=== PATIENT | female | born 1985 ===

== ENCOUNTER 2017-08-13 08:55 | Emergency (ER) | payer MEDICAID ==
[2017-08-13 09:20] VITALS: BMI 22.1
[2017-08-13 09:27] VITALS: RESP 18; TEMP 98
--- NOTE | 2017-08-13 09:39 | ED PDOC ---
Arrival/HPI - General Chief Complaint: Lower Extremity Problem/Injury Time Seen by Provider: 08/13/17 09:22 Historian: Patient - History of Present Illness Narrative History of Present Illness (Text): 08/13/17 09:22 31 y/o female, no significant pmh, nkda, c/o rt. ankle pain s/p inversion injury while walking down the stair this morning. Aching pain, associated with mild swelling, no calf pain, no foot pain, no numbness or tingling, no rash, no other medical or psychological complaints. Past Medical History - Provider Review Nursing Documentation Reviewed: Yes - Infectious Disease Hx of Infectious Diseases: None - Psychiatric Hx Substance Use: No - Surgical History Hx Section: Yes - Anesthesia Hx Anesthesia: Yes Hx Anesthesia Reactions: No Hx Malignant Hyperthermia: No Family/Social History - Physician Review Nursing Documentation Reviewed: Yes Family/Social History: Unknown Family HX Smoking Status: Never Smoked Hx Alcohol Use: No Hx Substance Use: No Allergies/Home Meds Allergies/Adverse Reactions: Allergies kiwi Allergy (Verified 08/13/17 09:36) ITCHING Review of Systems - Review of Systems Constitutional: absent: Fatigue, Fevers Eyes: absent: Vision Changes ENT: absent: Hearing Changes Respiratory: absent: SOB, Cough Cardiovascular: absent: Chest Pain Gastrointestinal: absent: Abdominal Pain, Nausea, Vomiting Musculoskeletal: Arthralgias, Joint Swelling. absent: Back Pain, Neck Pain, Myalgias Skin: absent: Rash, Pruritis Psychiatric: absent: Anxiety, Depression, Suicidal Ideation Physical Exam Vital Signs Reviewed: Yes Vital Signs Temp Pulse Resp BP Pulse Ox 08/13/17 10:56 68 18 08/13/17 10:50 68 18 110/70 99 08/13/17 08:56 98.0 F 73 18 106/78 100 Temperature: Afebrile Blood Pressure: Normal Pulse: Regular Respiratory Rate: Normal Appearance: Positive for: Well-Appearing, Non-Toxic, Comfortable Pain Distress: Mild Mental Status: Positive for: Alert and Oriented X 3 - Systems Exam Head: Present: Atraumatic, Normocephalic Pupils: Present: PERRL Extroacular Muscles: Present: EOMI Conjunctiva: Present: Normal Mouth: Present: Moist Mucous Membranes Neck: Present: Normal Range of Motion Respiratory/Chest: Present: Clear to Auscultation, Good Air Exchange. No: Respiratory Distress, Accessory Muscle Use Cardiovascular: Present: Regular Rate and Rhythm, Normal S1, S2. No: Murmurs Abdomen: No: Tenderness, Distention, Peritoneal Signs Back: Present: Normal Inspection Upper Extremity: Present: Normal Inspection. No: Cyanosis, Edema Lower Extremity: Present: Normal Inspection, Other (Rt. ankle/foot: +ttp on the rt. lateral ankle with mild swelling, negative kt and chatman signs, skin intact, no laceration or abrasion, FROM without limitation, sensation intact, motor 5/5, +DPPT Pulses, capillary refill< 2 seconds, neurovascular intact. ). No: Edema Neurological: Present: GCS=15, CN II-XII Intact, Speech Normal Skin: Present: Warm, Dry, Normal Color. No: Rashes Psychiatric: Present: Alert, Oriented x 3, Normal Insight, Normal Concentration Medical Decision Making ED Course and Treatment: 08/13/17 09:42 -Rt. ankle xray -Motrin -Observe and reassess 08/13/17 10:37 -Urine hcg is negative -Rt. ankle pain resolved, feeling much better -Xray show no fracture or dislocation -Discharge home with motrin, ximena wrap, crutches, ice compression, follow up with your own pmd and orthopedic within 2 days, return to the ER for any new or worsening signs or symptoms. - RAD Interpretation Radiology Orders: 08/13/17 09:39 ANKLE RIGHT 3 VIEWS ROUTINE [RAD] Stat HISTORY: rt. ankle injury and pain laterally COMPARISON: None FINDINGS: BONES: Normal. No fracture. JOINTS: Normal. No osteoarthritis. Ankle mortise maintained. Talar dome intact SOFT TISSUES: Normal. OTHER FINDINGS: None. IMPRESSION: Normal right ankle radiographs. 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 Disposition/Present on Arrival - Present on Arrival Any Indicators Present on Arrival: No History of DVT/PE: No History of Uncontrolled Diabetes: No Urinary Catheter: No History of Decub. Ulcer: No History Surgical Site Infection Following: None - Disposition Have Diagnosis and Disposition been Completed?: Yes Diagnosis: Ankle injury, Ankle pain Disposition: HOME/ ROUTINE Disposition Time: 09:43 Patient Plan: Discharge Condition: GOOD Additional Instructions: -Discharge home with motrin, ximena wrap, crutches, ice compression, follow up with your own pmd and orthopedic within 2 days, return to the ER for any new or worsening signs or symptoms. Prescriptions: Ibuprofen [Motrin] 600 mg PO TID PRN #[id number] tab PRN Reason: Other Referrals: Israel Escobar MD [Primary Care Provider] - Follow up with primary Uriah Elena III, MD [Medical Doctor] - Follow up with primary Forms: WORK NOTE
[2017-08-13 10:50] VITALS: BP 110/70; PULSE 68; O2SAT 99
--- NOTE | 2017-08-13 11:00 | RAD ---
PROCEDURE: Right Ankle Radiographs. HISTORY: rt. ankle injury and pain laterally COMPARISON: None FINDINGS: BONES: Normal. No fracture. JOINTS: Normal. No osteoarthritis. Ankle mortise maintained. Talar dome intact SOFT TISSUES: Normal. OTHER FINDINGS: None. IMPRESSION: Normal right ankle radiographs.
== END 2017-08-13 10:55 | disposition home or self-care (01) ==
LOC: ED 08:55
DX: S99.911A Unspecified injury of right ankle, initial encounter (principal); X58.XXXA Exposure to other specified factors, initial encounter; M25.571 Pain in right ankle and joints of right foot

== ENCOUNTER 2018-03-09 21:42 | Emergency (ER) | payer MEDICAID ==
[2018-03-09 22:26] VITALS: RESP 18; TEMP 98; O2SAT 100; BMI 23.0
[2018-03-09] MEDS ORDERED: Sodium Chloride 0.9% 1,000 ML IV STA (22:48)
[2018-03-09 23:13] LABS: BASO # 0.01 K/mm3 (0.0-2.0); BASO % 0.1 % (0.0-3.0); EOS # 0.3 (0.0-0.7); EOS % 3.8 % (1.5-5.0); GRAN # 4.5 (1.4-6.5); GRAN % 60.8 % (50.0-68.0); HEMOGLOBIN 12.9 g/dL (12.0-16.0); LYMPH # 2.3 (1.2-3.4); LYMPH % 31.4 % (22.0-35.0); MEAN CELL VOLUME 86.9 fl (80.0-105.0); MEAN CORPUSCULAR HEMOGLOBIN 29.1 pg (25.0-35.0); MEAN CORPUSCULAR HGB CONC 33.5 g/dl (31.0-37.0); MEAN PLATELET VOLUME 10.7 fl (7.0-11.0); MONO # 0.3 (0.1-0.6); MONO % 3.9 % (1.0-6.0); RBC 4.43 10^6/uL (3.5-6.1); RED CELL DISTRIBUTION WIDTH 13.3 % (11.5-14.5); WHITE BLOOD COUNT 7.4 10^3/uL (4.5-11.0)
[2018-03-09 23:19] LABS: INR 1.13; PROTHROMBIN TIME 12.9 SECONDS (9.4-12.5)
[2018-03-09 23:20] LABS: ALB/GLOB RATIO 1.3 (1.1-1.8); ALBUMIN 4.2 g/dL (3.0-4.8); ALT/SGPT 24 U/L (7-56); AST/SGOT 20 U/L (14-36); BLOOD UREA NITROGEN 10 mg/dL (7-21); CALCIUM 9.3 mg/dL (8.4-10.5); GFR NON-AFRICAN AMERICAN > 60; LIPASE 250 U/L (23-300)
[2018-03-10 00:07] LABS: PH,URINE 6.5 (4.7-8.0); URINE BILIRUBIN NEGATIVE (NEGATIVE); URINE BLOOD NEGATIVE (NEGATIVE); URINE GLUCOSE (UA) NEGATIVE (NEGATIVE); URINE LEUKOCYTE ESTERASE NEGATIVE Leu/uL (NEGATIVE); URINE PROTEIN NEGATIVE mg/dL (<30 mg/dL); URINE UROBILINOGEN 0.2 E.U./dL (<1 E.U./dL)
[2018-03-10 00:15] LABS: URINE APPEARANCE CLEAR (CLEAR); URINE COLOR YELLOW (YELLOW)
--- NOTE | 2018-03-10 01:34 | ED PDOC ---
Arrival/HPI - General Chief Complaint: GI Problem Time Seen by Provider: 03/09/18 22:25 Historian: Patient - History of Present Illness Narrative History of Present Illness (Text): 32 y/o female with PMH of tubal ligation presents to the ED c/o vomiting x 1 day. Pt awoke feeling nauseous at 3am this morning, and admits to 4-5 episodes of non-bloody emesis since then. Associated epigastric abdominal pain and right sided flank pain. Pain is sharp and worse with vomiting. Unable to tolerate PO today, BM per baseline. Denies sick contacts, changes in diet, or recent travel. Denies fever, chills, diarrhea, chest pain, SOB, urinary symptoms, neck pain, headache, dizziness, vision changes, pelvic pain, vaginal discharge, vaginal bleeding, or any other associated symptoms. Past Medical History - Provider Review Nursing Documentation Reviewed: Yes - Infectious Disease Hx of Infectious Diseases: None - Psychiatric Hx Substance Use: No - Surgical History Hx Section: Yes Hx Tubal Ligation: Yes - Anesthesia Hx Anesthesia: Yes Hx Anesthesia Reactions: No Hx Malignant Hyperthermia: No Family/Social History - Physician Review Nursing Documentation Reviewed: Yes Family/Social History: No Known Family HX Smoking Status: Never Smoked Hx Alcohol Use: No Hx Substance Use: No Allergies/Home Meds Allergies/Adverse Reactions: Allergies kiwi Allergy (Verified 08/13/17 09:36) ITCHING Review of Systems - Physician Review All systems were reviewed & negative as marked: Yes - Review of Systems Constitutional: Normal Eyes: Normal ENT: Normal Respiratory: Normal. absent: SOB, Cough Cardiovascular: Normal. absent: Chest Pain, Palpitations, Syncope Gastrointestinal: Abdominal Pain, Nausea, Vomiting, Anorexia Genitourinary Female: Normal. absent: Dysuria, Frequency, Hematuria, Urine Output Changes, Vaginal Bleeding, Vaginal Discharge Musculoskeletal: Back Pain. absent: Neck Pain Skin: Normal. absent: Rash Neurological: Normal. absent: Headache, Dizziness, Gait Changes Endocrine: Normal Hemo/Lymphatic: Normal Psychiatric: Normal Physical Exam Vital Signs Reviewed: Yes Vital Signs Temp Pulse Resp BP Pulse Ox 03/09/18 22:24 98.0 F 61 18 113/79 100 Temperature: Afebrile Blood Pressure: Normal Pulse: Regular Respiratory Rate: Normal Appearance: Positive for: Well-Appearing, Non-Toxic, Comfortable Pain Distress: None Mental Status: Positive for: Alert and Oriented X 3 - Systems Exam Head: Present: Atraumatic, Normocephalic Pupils: Present: PERRL Extroacular Muscles: Present: EOMI Conjunctiva: Present: Normal Mouth: Present: Moist Mucous Membranes Neck: Present: Normal Range of Motion Respiratory/Chest: Present: Clear to Auscultation, Good Air Exchange. No: Respiratory Distress, Accessory Muscle Use Cardiovascular: Present: Regular Rate and Rhythm, Normal S1, S2. No: Murmurs Abdomen: Present: Tenderness (epigastric), Normal Bowel Sounds. No: Distention, Peritoneal Signs, Rebound, Guarding Back: Present: Normal Inspection, CVA Tenderness (right). No: Midline Tend erness, Paraspinal Tenderness Upper Extremity: Present: Normal Inspection, Normal ROM, NORMAL PULSES, Neurovascularly Intact, Capillary Refill < 2s. No: Cyanosis, Edema Lower Extremity: Present: Normal Inspection, NORMAL PULSES, Normal ROM, Neurovas cularly Intact, Capillary Refill < 2 s. No: Edema, Tenderness, Swelling Neurological: Present: GCS=15, CN II-XII Intact, Speech Normal, Motor Func Grossly Intact, Normal Sensory Function, Normal Cerebellar Funct, Gait Normal Skin: Present: Warm, Dry, Normal Color. No: Rashes Psychiatric: Present: Alert, Oriented x 3, Normal Insight, Normal Concentration, Normal Affect, Normal Mood Medical Decision Making ED Course and Treatment: Initial Plan: * CBC, CMP * Lipase * UA, culture * IVF * Zofran * Pepcid * CT Abd/Pelvis without IV contrast 23:30 Labwork un[address]. Pending CT. 00:30 Patient reports resolution of abdominal pain. Patient tolerated PO without difficulty. Ate two packs of raghavendra crackers and a cup of water. No vomiting. 01:[address] 02:00 Dr. Kendrick will take over patient care and disposition. Pending CT results. Patient with stable vital signs at this time. - Lab Interpretations Lab Results: 03/09/18 23:05 03/09/18 23:05 Lab Results 03/09/18 23:37: Urine Color Yellow, Urine Appearance Clear, Urine pH 6.5, Ur Specific [place] 1.025, Urine Protein Negative, Urine Glucose (UA) Negative, Urine Ketones Negative, Urine Blood Negative, Urine Nitrate Negative, Urine Bilirubin Negative, Urine Urobilinogen 0.2, Ur Leukocyte Esterase Negative 03/09/18 23:05: Sodium 141, Potassium 3.6, Chloride 107, Carbon Dioxide 27, Anion Gap 10, BUN 10, Creatinine 0.6 L, Est GFR ( Amer) > 60, Est GFR (Non-Af Amer) > 60, Random Glucose 95, Calcium 9.3, Magnesium 2.2, Total Bilirubin 0.4, AST 20, ALT 24, Alkaline Phosphatase 56, Total Protein 7.5, Albumin 4.2, Globulin 3.3, Albumin/Globulin Ratio 1.3, Lipase 250 03/09/18 23:05: PT 12.9 H, INR 1.13, APTT 27.0 03/09/18 23:05: WBC 7.4, RBC 4.43, Hgb 12.9, Hct 38.5, MCV 86.9, MCH 29.1, MCHC 33.5, RDW 13.3, Plt Count 232, MPV 10.7, Gran % 60.8, Lymph % (Auto) 31.4, [place] % (Auto) 3.9, Eos % (Auto) 3.8, Baso % (Auto) 0.1, Gran # 4.50, Lymph # (Auto) 2.3, [place] # (Auto) 0.3, Eos # (Auto) 0.3, Baso # (Auto) 0.01 I have reviewed the lab results: Yes - RAD Interpretation Radiology Orders: 03/09/18 22:53 ABD & PELVIS W/O PO OR IV CONT [CT] Stat - Medication Orders Current Medication Orders: Discontinued Medications Famotidine (Pepcid) 20 mg IVP STAT STA Stop: 03/09/18 22:49 Sodium Chloride (Sodium Chloride 0.9%) 1,000 mls @ 1,000 mls/hr IV .Q1H STA Stop: 03/09/18 23:47 Ketorolac Tromethamine (Toradol) 30 mg IVP STAT STA Stop: 03/09/18 22:49 Ondansetron HCl (Zofran Inj) 4 mg IVP STAT STA Stop: 03/09/18 22:49 Disposition/Present on Arrival - Present on Arrival Any Indicators Present on Arrival: No History of DVT/PE: No History of Uncontrolled Diabetes: No Urinary Catheter: No History of Decub. Ulcer: No History Surgical Site Infection Following: None - Disposition Have Diagnosis and Disposition been Completed?: Yes Diagnosis: Flank pain Disposition: HOME/ ROUTINE Disposition Time: 03:45 Patient Plan: Discharge Condition: IMPROVED Discharge Instructions (ExitCare): Flank Pain (DC) Additional Instructions: follow up with your pmd regarding liver spots Referrals: Israel Escobar MD [Primary Care Provider] - Follow up with primary Forms: [employer] ([place])
[2018-03-10 04:06] VITALS: BP 114/75; PULSE 60
--- NOTE | 2018-03-10 08:53 | CT ---
PROCEDURE: CT Abdomen and Pelvis without Oral or IV contrast. HISTORY: right flank pain COMPARISON: None available. TECHNIQUE: Contiguous axial images of the abdomen and pelvis. No oral or IV contrast administered. Coronal and Sagittal reformats generated and reviewed. Radiation dose: Total exam DLP = 349.11 mGy-cm. This CT exam was performed using one or more of the following dose reduction techniques: Automated exposure control, adjustment of the mA and/or kV according to patient size, and/or use of iterative reconstruction technique. FINDINGS: There is limited evaluation of the solid organs without the administration of IV contrast. LOWER THORAX: No visible consolidation, pleural effusion, or pneumothorax. 4 mm right lower lobe pulmonary nodule. LIVER: Ill-defined right hepatic lobe mass measures approximately 3.3 x 2.5 cm in the right hepatic lobe, indeterminate. Additional hypodense masses are noted. GALLBLADDER AND BILE DUCTS: Unremarkable unenhanced appearance. PANCREAS: Unremarkable unenhanced appearance. SPLEEN: Unremarkable unenhanced appearance. ADRENALS: Unremarkable unenhanced appearance. KIDNEYS AND URETERS: No hydronephrosis or obstructing renal calculus. Punctate nonobstructing bilateral renal calculi. BLADDER: The urinary bladder appears unremarkable. REPRODUCTIVE: Uterus is present. APPENDIX: The appendix appears within normal limits of caliber. No secondary signs of acute appendicitis. BOWEL: The stomach is nondistended. Lack of oral contrast limits evaluation for bowel pathology. The bowel loops appear within normal limits of caliber without evidence of intestinal obstruction. PERITONEUM: No significant free fluid. No definite free air. LYMPH NODES: No bulky lymphadenopathy identified. VASCULATURE: Unremarkable. No aortic aneurysm. BONES: No acute osseous abnormality is detected. OTHER FINDINGS: None. IMPRESSION: Ill-defined right hepatic lobe mass measures approximately 3.3 x 2.5 cm in the right hepatic lobe, indeterminate. Additional hypodense masses are noted. Malignant and benign etiologies are considered. Recommend dedicated liver imaging for further characterization. Punctate nonobstructing bilateral renal calculi. 4 mm right lower lobe pulmonary nodule. If the patient is considered high risk, optional CT at 12 months is recommended. Preliminary impression was provided by [employer]. Study marked for PA review.
== END 2018-03-10 04:00 | disposition home or self-care (01) ==
LOC: ED 21:42
DX: R10.9 Unspecified abdominal pain (principal); Z98.51 Tubal ligation status; N20.0 Calculus of kidney
CPT/HCPCS: 74176; 80053; 81003; 83690; 83735; 85025; 85610; 85730; 87086; 96361; 96374; 96375; 99285; J1885; J2405; J7030